=== PATIENT | female | born 1970 | race Caucasian/White ===

== ENCOUNTER → 2017-10-27 10:44 | Outpatient (CLI) | payer OTHER, SELFPAY ==
--- NOTE | 2017-10-27 10:52 | RAD_ITS ---
STUDY: EVALUATION OF THE INDWELLING RIGHT SIDED SHANNAN CATHETER. REASON FOR EXAM: Female, 46 years old. Evaluation of the right portacatheter. FLUOROSCOPY TIME (if supplied): (0:13) minutes/seconds TECHNIQUE: Nonionic contrast was injected through the indwelling port. Imaging was submitted. COMPARISON: None. FINDINGS: The right-sided port is widely patent. There is free flow of contrast into the atrium. RAD/Fluoroscopy 1 Hr or Less IMPRESSION: There is patency of the right-sided shannan catheter. Electronically Signed: Brett Pickens MD at 12:49 EST Tel [phone], Service support ,
--- NOTE | 2017-10-27 11:26 | NURSING ---
DR MEJIA'S OFFICE CALLED BY THIS RN TO INFORM THEM OF SUCCESSFUL PORT STUDY. PT LEFT ACCESSED AND SENT TO [facility] FOR CHEMO.
--- NOTE | 2017-10-27 11:33 | NURSING ---
PT 'S RT CHEST PORT EDEMATOUS S/P RECENT PLACEMENT. DIFFICULTY LOCATING LANDMARKS FOR INSERTION. FIRST ATTEMPT UNSUCCESSFUL. PT C/O CHEST PRESSURE. NEEDLE REMOVED AND SALINE MILKED OUT. SECOND ATTEMPT UNSUCCESSFUL, NO SALINE INFUSED. THIRD ATTEMPT SUCCESSFUL. PATENT WITH FLUSH OF 10ML NS. CONTRAST STUDY PERFORMED SUCCESSFULLY. PORT FLUSHED WITH 10ML NS, CLAMPED AND SENT TO DR. MEJIA'S OFFICE.
== END ==
PROVIDERS: Visit Provider Internal Medicine Hematology & Oncology
DX: C50.919 Malignant neoplasm of unspecified site of unspecified female breast (principal)
CPT/HCPCS: 76000; Q9965; A4216